=== PATIENT | female | born 1980 | race Caucasian/White ===

== ENCOUNTER → 2016-06-26 | Outpatient (CLI) | payer BC | END | disposition home or self-care (01) | LOC: C.PAPS 10:34 | PROVIDERS: ATTEND Obstetrics & Gynecology | DX: Z01.419 Encounter for gynecological examination (general) (routine) without abnormal findings (principal) ==

== ENCOUNTER → 2017-03-04 | Outpatient (CLI) | payer BC ==
[2017-03-07 00:32] LABS: CHLAMYDIA TRACH RNA*** NOT DETECTED (NOT DETECTED); GC (NEIS GONORRHOEAE)RNA** NOT DETECTED (NOT DETECTED)
== END | disposition home or self-care (01) ==
LOC: C.LABSPEC 17:55
PROVIDERS: ATTEND Physician Assistant
DX: Z30.433 Encounter for removal and reinsertion of intrauterine contraceptive device (principal)

== ENCOUNTER → 2017-03-04 | Outpatient (CLI) | payer BC | END | disposition home or self-care (01) | LOC: C.PATHSPEC 18:15 | PROVIDERS: ATTEND Obstetrics & Gynecology | DX: N84.1 Polyp of cervix uteri (principal) ==